=== PATIENT | male | born 1985 | race Caucasian/White ===

== ENCOUNTER 2017-07-01 17:10 | Inpatient (IN) ==
[2017-07-01 18:11] LABS: Basophils % 0.3 %; Eosinophils # 0.2 K/mcL (0.0-0.6); Eosinophils % 1.5 %; Hemoglobin 14.6 g/dL (12.9-16.9); Immature Granulocytes % 0.3 % (0-4); Lymphocytes # 2.8 K/mcL (0.6-4.6); Lymphocytes % 22.1 %; Mean Corpuscular HGB Conc 33.2 g/dL (31.6-35.5); Mean Corpuscular Hemoglobin 28.9 pg (28.0-33.3); Mean Platelet Volume 10.7 fL (9.4-12.4); Monocytes # 0.7 K/mcL (0.0-1.3); Monocytes % 5.5 %; Neutrophils # 8.9 K/mcL (1.6-8.9); Platelet Count 265 K/mcL (140-400); Red Blood Count 5.06 M/mcL (4.19-5.50); Red Cell Distribution Width 13.7 % (11.5-14.5); Segmented Neutrophils % 70.3 %
[2017-07-01 18:30] LABS: BUN/Creatinine Ratio 13 (6-26); Blood Urea Nitrogen 10 mg/dL (8-26); Calcium 9.1 mg/dL (8.6-10.8); Carbon Dioxide 27 mEq/L (19-29); Chloride 103 mEq/L (98-109); Glucose 96 mg/dL (70-99); Osmolality,Calculated 287 (280-300); Sodium 139 mEq/L (136-145); eGFR For African Americans > 60 (> 60); eGFR For Non-African Americans > 60 (> 60)
[2017-07-01 18:32] LABS: Acetaminophen < 1.0 mcg/mL (10-30); Ethanol < 10 mg/dL (0-10); Salicylate < 5.0 mg/dL (15-30)
--- NOTE | 2017-07-01 18:35 | Emergency Department Note ---
Disposition Clinical Impression: Suicidal ideations, Methamphetamine abuse, Cocaine abuse Disposition: Transfer Psychiatric Hosp Condition: Good Referrals: NONE,PCP [Primary Care Provider] - Forms: ED Satisfaction Letter Time of Disposition: 22:57 Psych HPI - General Chief Complaint: ED Psychiatric Symptoms Stated Complaint: PSYCH CONSULT Time Seen by Provider: 07/01/17 18:00 Source: patient Mode of arrival: private vehicle Limitations: no limitations Nursing Notes Reviewed: Yes Vital Signs Reviewed: Yes - History of Present Illness HPI Narrative: 31-year-old male presents ED because of suicidal ideations. He has a history of recurring substance abuse including methamphetamine and cocaine. He used both most recently within the last 48 hours. He also chronically takes Klonopin for anxiety but has been off this for 3 days. Denies any fevers or chills. No chest pain. No dyspnea. No vomiting. No tremors or seizures. Pt complaint: suicidal ideation Onset (ago): day(s) Duration: constant History of similar episodes: Yes Improves with: none Worsens with: none Context: recent drug abuse Alleged intoxication: No Associated Psychiatric Symptoms: none Associated symptoms: Denies: confusion, headache, shortness of breath Traumatic symptoms: denies traumatic injury Treatments prior to arrival: none Self harm or harm to others: admits thoughts of self harm - Related Data Previous Rx's Medication Instructions Recorded DULoxetine [Cymbalta] 30 mg PO DAILY #30 capsule. 02/23/16 Famotidine [Pepcid] 20 mg PO BID tablet 02/23/16 Gabapentin [Neurontin] 300 mg PO TID PRN #0 capsule 02/23/16 Ibuprofen [Motrin] 800 mg PO BID tablet 02/23/16 Lisinopril [Zestril] 10 mg PO DAILY tablet 02/23/16 Omeprazole [PriLOSEC] 20 mg PO BIDAC capsule 02/23/16 Rivaroxaban [Xarelto] 10 mg PO 1700 tablet 02/23/16 Allergies Allergy/AdvReac Type Severity Reaction Status Date / Time No Known Allergies Allergy Verified 02/22/16 15:41 All systems ED: reviewed and negative except as stated. Constitutional: Denies: fever Cardiovascular: Denies: chest pain, palpitations Respiratory: Denies: cough, dyspnea Psychiatric: Reports: anxiety, depression, suicidal thoughts. Denies: homicidal thoughts, auditory hallucinations, visual hallucinations Past Medical History - Past Medical History Attestation: Yes The following information was validated with the patient. Medical history: Reports: hypertension, pulmonary embolus, other Surgical history: Reports: other Psychiatric history: Reports: anxiety - Social History Smoking Status: Current every day smoker Smokeless Tobacco Status: No Alcohol use: Reports: rarely Drug use: Reports: none Physical Exam - General Limitations: no limitations General appearance: alert, in no apparent distress - Head Head exam: atraumatic, normocephalic - Eye Eye exam: Present: normal appearance, PERRL, EOMI - ENT ENT exam: normal oropharynx, mucous membranes moist - Neck Neck exam: Present: trachea midline - Respiratory Respiratory exam: Present: normal lung sounds bilaterally. Absent: respiratory distress - Cardiovascular Cardiovascular exam: Present: normal rhythm. Absent: bradycardia - Abdominal Exam Abdominal exam: Present: soft, Non-Tender - Extremities Exam Extremities exam: Present: normal inspection - Expanded Lower Extremity Exam Neurovascular/Tendon exam: Present: normal capillary refill - Back Exam Back exam: Present: normal inspection. Absent: tenderness, CVA tenderness (R), CVA tenderness (L) - Neurological Exam Neurological exam: Present: alert, oriented X3 - Psychiatric Psychiatric exam: Present: normal affect, normal mood - Skin Skin exam: Present: warm, dry Course - Reevaluation(s) Reevaluation #1: Patient will be admitted for psychiatric evaluation but awaiting placement Time: 22:45 Vital Signs Temperature 97.9 F 07/01/17 17:25 Pulse Rate 80 07/01/17 17:25 Respiratory Rate 18 07/01/17 17:25 Blood Pressure 149/110 07/01/17 17:25 O2 Sat by Pulse Oximetry 100 07/01/17 17:25 Temperature 97.9 F 07/01/17 17:25 Pulse Rate 80 07/01/17 17:25 Respiratory Rate 18 07/01/17 17:25 Blood Pressure 149/110 07/01/17 17:25 O2 Sat by Pulse Oximetry 100 07/01/17 17:25 Oxygen Delivery Oxygen Delivery Room Air Psych - Lab Data Result diagrams: 07/01/17 18:00 07/01/17 18:00 Lab Results 07/01/17 07/01/17 07/01/17 Range/Units 18:00 18:00 19:16 WBC 12.7 H (4.3-11.1) K/mcL RBC 5.06 (4.19-5.50) M/mcL Hgb 14.6 (12.9-16.9) g/dL Hct 44.0 (37.5-50.1) % MCV 87.0 (83.0-100.0) fL MCH 28.9 (28.0-33.3) pg MCHC 33.2 (31.6-35.5) g/dL RDW 13.7 (11.5-14.5) % Plt Count 265 (140-400) K/mcL MPV 10.7 (9.4-12.4) fL Immature Gran % 0.3 (0-4) % Seg Neutrophils % 70.3 % Lymphocytes % 22.1 % Monocytes % 5.5 % Eosinophils % 1.5 % Basophils % 0.3 % Neutrophils # 8.9 (1.6-8.9) K/mcL Lymphocytes # 2.8 (0.6-4.6) K/mcL Monocytes # 0.7 (0.0-1.3) K/mcL Eosinophils # 0.2 (0.0-0.6) K/mcL Basophils # 0.0 (0.0-0.2) K/mcL Sodium 139 (136-145) mEq/L Potassium 4.0 (3.5-4.5) mEq/L Chloride 103 (98-109) mEq/L Carbon Dioxide 27 (19-29) mEq/L BUN 10 (8-26) mg/dL Creatinine 0.77 (0.72-1.25) mg/dL Est GFR ( Amer) > 60 (> 60) Est GFR (Non-Af Amer) > 60 (> 60) BUN/Creatinine Ratio 13 (6-26) Glucose 96 (70-99) mg/dL Calculated Osmolality 287 (280-300) Calcium 9.1 (8.6-10.8) mg/dL Urine Color Yellow (Yellow) Urine Clarity Turbid A (Clear) Urine pH 7.0 (5.0-8.0) pH Units Ur Specific [place] 1.023 (1.010-1.025) Urine Protein Negative (Neg-Trace) mg/dL Urine Glucose (UA) Normal (Normal) mg/dL Urine Ketones Negative (Negative) mg/dL Urine Blood Negative (Negative) Urine Nitrite Negative (Negative) Urine Bilirubin Negative (Negative) Urine Urobilinogen Normal (Normal) mg/dL Ur Leukocyte Esterase Negative (Negative) Urine Microscopic RBC 0-3 (0-3) per hpf Urine Microscopic WBC 0-3 (0-3) per hpf Ur Squamous Epith Cells Moderate H (None-Few) per lpf Urine Bacteria None Seen (None-Few) per hpf Hyaline Casts None Seen (None-Few) per lpf Salicylates < 5.0 L (15-30) mg/dL Urine Opiates Screen (Warubo=529) ng/mL Acetaminophen < 1.0 L (10-30) mcg/mL Ur Barbiturates Screen (Ycpgoq=771) ng/mL Ur Phencyclidine Scrn (Cutoff=25) ng/mL Ur Amphetamines Screen (Cwylks=0600) ng/mL U Benzodiazepines Scrn (Niidvb=316) ng/mL Urine Cocaine Screen (Cutoff= 300) ng/mL U Marijuana (THC) Screen (Cutoff = 50) ng/mL Ethyl Alcohol < 10 (0-10) mg/dL 07/01/17 Range/Units 19:16 WBC (4.3-11.1) K/mcL RBC (4.19-5.50) M/mcL Hgb (12.9-16.9) g/dL Hct (37.5-50.1) % MCV (83.0-100.0) fL MCH (28.0-33.3) pg MCHC (31.6-35.5) g/dL RDW (11.5-14.5) % Plt Count (140-400) K/mcL MPV (9.4-12.4) fL Immature Gran % (0-4) % Seg Neutrophils % % Lymphocytes % % Monocytes % % Eosinophils % % Basophils % % Neutrophils # (1.6-8.9) K/mcL Lymphocytes # (0.6-4.6) K/mcL Monocytes # (0.0-1.3) K/mcL Eosinophils # (0.0-0.6) K/mcL Basophils # (0.0-0.2) K/mcL Sodium (136-145) mEq/L Potassium (3.5-4.5) mEq/L Chloride (98-109) mEq/L Carbon Dioxide (19-29) mEq/L BUN (8-26) mg/dL Creatinine (0.72-1.25) mg/dL Est GFR ( Amer) (> 60) Est GFR (Non-Af Amer) (> 60) BUN/Creatinine Ratio (6-26) Glucose (70-99) mg/dL Calculated Osmolality (280-300) Calcium (8.6-10.8) mg/dL Urine Color (Yellow) Urine Clarity (Clear) Urine pH (5.0-8.0) pH Units Ur Specific [place] (1.010-1.025) Urine Protein (Neg-Trace) mg/dL Urine Glucose (UA) (Normal) mg/dL Urine Ketones (Negative) mg/dL Urine Blood (Negative) Urine Nitrite (Negative) Urine Bilirubin (Negative) Urine Urobilinogen (Normal) mg/dL Ur Leukocyte Esterase (Negative) Urine Microscopic RBC (0-3) per hpf Urine Microscopic WBC (0-3) per hpf Ur Squamous Epith Cells (None-Few) per lpf Urine Bacteria (None-Few) per hpf Hyaline Casts (None-Few) per lpf Salicylates (15-30) mg/dL Urine Opiates Screen Negative (Uxpmuk=066) ng/mL Acetaminophen (10-30) mcg/mL Ur Barbiturates Screen Negative (Luowij=933) ng/mL Ur Phencyclidine Scrn Negative (Cutoff=25) ng/mL Ur Amphetamines Screen Positive H (Pnuubj=1088) ng/mL U Benzodiazepines Scrn Negative (Pmzzjn=333) ng/mL Urine Cocaine Screen Positive H (Cutoff= 300) ng/mL U Marijuana (THC) Screen Negative (Cutoff = 50) ng/mL Ethyl Alcohol (0-10) mg/dL Psychiatric Medical Clearance - Medical Clearance Checklist Medical History: Depression (Acute) Suicidal ideation (Acute) Adjustment disorder (Acute) Opioid abuse (Acute) Stimulant abuse (Acute) No Social History Section defined Current Vitals: Last Vital Signs Temp 97.9 F 07/01/17 17:25 Pulse 80 07/01/17 17:25 Resp 18 07/01/17 17:25 BP 149/110 07/01/17 17:25 Pulse Ox 100 07/01/17 17:25 Psychiatric Lab Panel: Drug Levels and Toxicity 07/01/17 07/01/17 18:00 19:16 Urine Opiates Screen Negative Acetaminophen < 1.0 L Ur Barbiturates Screen Negative Ur Phencyclidine Scrn Negative Ur Amphetamines Screen Positive H U Benzodiazepines Scrn Negative Urine Cocaine Screen Positive H U Marijuana (THC) Screen Negative Ethyl Alcohol < 10 Abnormal Labs: Abnormal lab results WBC 12.7 K/mcL (4.3-11.1) H 07/01/17 18:00 Urine Clarity Turbid (Clear) A 07/01/17 19:16 Ur Squamous Epith Cells Moderate per lpf (None-Few) H 07/01/17 19:16 Salicylates < 5.0 mg/dL (15-30) L 07/01/17 18:00 Acetaminophen < 1.0 mcg/mL (10-30) L 07/01/17 18:00 Ur Amphetamines Screen Positive ng/mL (Gpumct=7059) H 07/01/17 19:16 Urine Cocaine Screen Positive ng/mL (Cutoff= 300) H 07/01/17 19:16 Attestation Statement - Attestation Attestation: I examined this patient and my medical decision-making was reviewed with the Physician It Integration Architect. I agree with the documented findings, disposition and treatment plan as described except to the extent set forth below.
[2017-07-01 19:33] LABS: Bilirubin,Urine Negative (Negative); Blood,Urine Negative (Negative); Clarity,Urine Turbid (Clear); Color,Urine Yellow (Yellow); Glucose,Urine (UA) Normal (Normal); Ketones,Urine Negative (Negative); Leukocyte Esterase,Urine Negative (Negative); Nitrite,Urine Negative (Negative); Protein,Urine Negative (Neg-Trace); Specific Gravity,Urine 1.023 (1.010-1.025); Urobilinogen,Urine Normal (Normal)
[2017-07-01 19:35] LABS: Amphetamine Screen,Urine Positive ng/mL (Cutoff=1000); Barbiturate Screen,Urine Negative ng/mL (Cutoff=200); Benzodiazepines Screen,Urine Negative ng/mL (Cutoff=200); Cannabinoid Screen,Urine Negative ng/mL (Cutoff = 50); Cocaine Screen,Urine Positive ng/mL (Cutoff= 300); Opiate Screen,Urine Negative ng/mL (Cutoff=300); Phencyclidine Screen,Urine Negative ng/mL (Cutoff=25)
[2017-07-01 19:36] LABS: Bacteria,Urine None Seen per hpf (None-Few); Hyaline Casts,Urine None Seen per lpf (None-Few); RBC,Urine 0-3 per hpf (0-3); Squamous Epithelial Cell,Urine Moderate per lpf (None-Few); WBC,Urine 0-3 per hpf (0-3)
[2017-07-02] MEDS ORDERED: *HR* LORazepam 2 MG/ML VIAL IM PRN (15:22)
[2017-07-02] MEDS ORDERED: MOM Conc 10 ML UD.LIQ PO PRN (15:22)
[2017-07-02] MEDS ORDERED: Mag Hydrox/Al Hydrox/Simeth 30 ML UDC PO PRN (15:22)
[2017-07-02] MEDS ORDERED: Haloperidol Lactate 5 MG/ML VIAL IM PRN (15:22)
[2017-07-02] MEDS ORDERED: Ibuprofen 400 MG TABLET PO PRN (15:22)
[2017-07-02] MEDS ORDERED: *HR* LORazepam 1 MG TABLET PO PRN (15:22)
[2017-07-02] MEDS ORDERED: Gabapentin 300 MG CAPSULE PO PRN (16:16)
[2017-07-02] MEDS: clonazePAM 1 MG TABLET PO SCH (20:53)
[2017-07-03] MEDS: clonazePAM 1 MG TABLET PO SCH ×2 (08:20→20:44)
[2017-07-03] MEDS: Nicotine 14 MG PATCH.TD24 TD SCH (08:20)
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
[2017-07-03] MEDS: traZODone 50 MG TABLET PO PRN (20:47)
[2017-07-04] MEDS: clonazePAM 1 MG TABLET PO SCH ×2 (09:12→21:35)
[2017-07-04] MEDS: FLUoxetine 20 MG CAPSULE PO SCH (09:13)
[2017-07-04] MEDS: Nicotine 14 MG PATCH.TD24 TD SCH (09:14)
--- NOTE | 2017-07-04 14:06 | Psychiatry Progress Note ---
Date of Encounter: 07/04/17 Time of Encounter: 14:01 Subjective Interval history: Patient wants to be considered for a program. He wants to remain free of alcohol and drugs of abuse. He is able to recall hallucination, associated with methamphetaimne. He has called his uncle, who is encouraging recovery. His options include: [facility], [facility]. and other options. He has wanted to steven his daughter to tell her that he needs to get treatment. He was able to talk about OCD phenomena. Review of Systems Psychiatric: Reports: other (obsessions and compulsions) Objective: Exam Patient orientation: Yes Person, Yes Time, Yes Place, Yes Circumstance Level of alertness: Alert Patient appearance: Appropriate Behavior: calm, guarded Psychomotor activity: Normal Eye contact: Maintains Eye Contact Mood description: Anxious Affect description: constricted Speech pattern: Normal rate, Normal rhythm Speech volume: Normal Thought content: Yes Obsessive thoughts, Yes Phobic Judgment: Fair Insight: Partial Results - Vital Signs Vital Signs: Temp Pulse Resp BP Pulse Ox 97.2 F L 96 18 122/83 99 07/04/17 09:00 07/04/17 09:00 07/04/17 09:00 07/04/17 09:00 07/02/17 11:22 Assessment and Plan (1) Adjustment disorder with depressed mood Current visit: Yes Status: Acute Plan: Continue hospitalization, Encourage participation in unit milieu, Family/ Supportive other meeting Risks, benefits, side effects, alternatives discussed w/pt: Yes Patient agreeable to treatment: Yes (2) Cocaine abuse Current visit: Yes Status: Acute Plan: Other Additional Plan: obtain treatment for sobriett Risks, benefits, side effects, alternatives discussed w/pt: Yes Patient agreeable to treatment: Yes (3) Methamphetamine abuse Current visit: Yes Status: Acute Plan: Continue hospitalization, Encourage participation in unit milieu Additional Plan: sobriety Risks, benefits, side effects, alternatives discussed w/pt: Yes Patient agreeable to treatment: Yes (4) Suicidal ideation Current visit: Yes Status: Acute Plan: Close observation, Suicide Precautions per unit protocol Risks, benefits , side effects, alternatives discussed w/pt: Yes Patient agreeable to treatment: Yes Consult Discharge Plan - Plan Referrals: NONE,PCP [Primary Care Provider] -
[2017-07-04] MEDS: traZODone 50 MG TABLET PO PRN (21:35)
[2017-07-05] MEDS: Nicotine 14 MG PATCH.TD24 TD SCH (08:44)
[2017-07-05] MEDS: FLUoxetine 20 MG CAPSULE PO SCH (08:44)
[2017-07-05] MEDS: clonazePAM 1 MG TABLET PO SCH (08:44)
--- NOTE | 2017-07-05 14:28 | Psychiatry Progress Note ---
Date of Encounter: 07/05/17 Time of Encounter: 14:26 Subjective Interval history: The patient is interested in rehabilitation he has 3 pages of places to call some places it may take 3-4 weeks to get into but he may talk to his uncle about where he could stay during that period of time his uncle is familiar with drug abuse and the time necessary for recovery. The patient did not necessarily want to go the refuge and his D and his other options. The patient wants to stay on Prozac he understands that he must taper off clonazepam and he will not be discharged. Review of Systems Psychiatric: Reports: depression, anxiety, other (obsessions and compulsions) Objective: Exam Patient orientation: Yes Person, Yes Time, Yes Place, Yes Circumstance Level of alertness: Alert Patient appearance: Appropriate Behavior: calm Psychomotor activity: Normal Eye contact: Maintains Eye Contact Mood description: Anxious Affect description: dysphoric, anxious Speech pattern: Normal rhythm, Excessive Speech volume: Normal Thought process: Intact Thought content: Yes Obsessive thoughts Judgment: Fair Insight: Partial Results - Vital Signs Vital Signs: Temp Pulse Resp BP Pulse Ox 97.4 F L 84 18 119/84 99 07/05/17 09:00 07/05/17 09:00 07/05/17 09:00 07/05/17 09:00 07/02/17 11:22 Assessment and Plan (1) Adjustment disorder with depressed mood Current visit: Yes Status: Acute Plan: Continue hospitalization, Close observation, Suicide Precautions per unit protocol, Encourage participation in unit milieu Risks, benefits, side effects , alternatives discussed w/pt: Yes Patient agreeable to treatment: Yes (2) Cocaine abuse Current visit: Yes Status: Acute Plan: Continue hospitalization Additional Plan: taper and d/c clonazepam Risks, benefits, side effects, alternatives discussed w/pt: Yes Patient agreeable to treatment: Yes (3) Methamphetamine abuse Current visit: Yes Status: Acute Plan: Continue hospitalization Additional Plan: seek rehabilitation Risks, benefits, side effects, alternatives discussed w/pt: Yes Patient agreeable to treatment: Yes (4) Suicidal ideation Current visit: Yes Status: Acute Plan: Suicide Precautions per unit protocol, Secure weapons Risks, benefits, side effects, alternatives discussed w/pt: Yes Patient agreeable to treatment : Yes Consult Discharge Plan - Plan Referrals: [facility] [Outside] - 08/15/17 10:00 am (The above appointment is with Geno Christensen for outpatient psychiatric assessment and medication management services. Please arrive 30 minutes early to complete paperwork. Please bring your photo ID (bring proof of address if you do not have an ID) and medication list. The above appointment(s) reflects first availability. You may contact the office regularly to check for cancellations that may allow you to be seen sooner. ) [facility] [Outside] - 07/09/17 12:00 pm (The above appointment is with Roya for outpatient substance abuse and mental health assessment and counseling services.)
[2017-07-05] MEDS: traZODone 50 MG TABLET PO PRN (21:53)
[2017-07-05] MEDS: clonazePAM 0.5 MG TABLET PO SCH (21:53)
[2017-07-06] MEDS: clonazePAM 0.5 MG TABLET PO SCH ×2 (08:43→20:11)
[2017-07-06] MEDS: Nicotine 14 MG PATCH.TD24 TD SCH (08:43)
[2017-07-06] MEDS: FLUoxetine 20 MG CAPSULE PO SCH (08:45)
--- NOTE | 2017-07-06 12:32 | Psychiatry Progress Note ---
Date of Encounter: 07/06/17 Time of Encounter: 12:27 Subjective Interval history: Client reports he is feeling better. Thinks Prozac is helping him. Suicidal thoughts have improved. Still gets teary eyed when discussing custody loss of daughter due to drug use. Wants rehab but has struggled with motivation to call places. According to documentation he just starting reaching out yesterday. Plan was for him to stay with his uncle until a rehab bed opens but uncle called this morning to say he is supportive of client and will spend time with him but cannot allow him to stay in the home as his presence could jeopardize 's employment. Client states he can stay with his mother and potentially friends but that drugs/alcohol are present in all other housing options. Chose uncle since his uncle is sober and it would have been a safe environment. Client intends to call other residential rehab placements today and will reevaluate tomorrow. Review of Systems Constitutional: Denies: fever, chills, weakness, weight change Eyes: Denies: eye pain, vision change Ears, Nose, Throat: Denies: ear pain, throat pain, dental pain, hearing loss, congestion Cardiovascular: Denies: chest pain, palpitations, dyspnea on exertion Respiratory: Denies: cough, dyspnea, wheezes Gastrointestinal: Denies: abdominal pain, nausea, vomiting, diarrhea, constipation Musculoskeletal: Denies: joint swelling, joint pain Neurological: Denies: headache, weakness, numbness, memory loss Psychiatric: Reports: depression, anxiety, other (obsessions and compulsions) Objective: Exam Patient orientation: Yes Person, Yes Time, Yes Place Level of alertness: Alert Patient appearance: Appropriate, Well Groomed Behavior: calm, cooperative Psychomotor activity: Normal Eye contact: Maintains Eye Contact Mood description: Depressed Affect description: congruent with mood Speech volume: Normal Thought process: Linear Thought content: No Suicidal ideation, No Homicidal ideation, No Overt delusions Perceptual disturbances: No Auditory hallucinations, No Visual hallucinations Judgment: Limited Insight: Partial Results - Vital Signs Vital Signs: Temp Pulse Resp BP Pulse Ox 98.2 F 79 18 130/79 99 07/06/17 09:00 07/06/17 09:00 07/06/17 09:00 07/06/17 09:00 07/02/17 11:22 Assessment and Plan (1) Adjustment disorder with depressed mood Current visit: Yes Status: Acute Plan: Continue hospitalization, Close observation, Suicide Precautions per unit protocol, Encourage participation in unit milieu, Group Therapy, Monitor sleep, Monitor appetite Risks, benefits, side effects, alternatives discussed w/pt: Yes Patient agreeable to treatment: Yes (2) Methamphetamine abuse Current visit: Yes Status: Acute Plan: Continue hospitalization, Close observation, Suicide Precautions per unit protocol, Encourage participation in unit milieu, Group Therapy, Monitor sleep, Monitor appetite Risks, benefits, side effects, alternatives discussed w/pt: Yes Patient agreeable to treatment: Yes Consult Discharge Plan - Plan Referrals: [facility] [Outside] - 08/15/17 10:00 am (The above appointment is with Geno Christensen for outpatient psychiatric assessment and medication management services. Please arrive 30 minutes early to complete paperwork. Please bring your photo ID (bring proof of address if you do not have an ID) and medication list. The above appointment(s) reflects first availability. You may contact the office regularly to check for cancellations that may allow you to be seen sooner. ) [facility] [Outside] - 07/09/17 12:00 pm (The above appointment is with Roya for outpatient substance abuse and mental health assessment and counseling services.)
[2017-07-06] MEDS: traZODone 50 MG TABLET PO PRN (20:11)
[2017-07-06] MEDS: hydrOXYzine pamoate 25 MG CAPSULE PO PRN (20:11)
[2017-07-07] MEDS: FLUoxetine 20 MG CAPSULE PO SCH (08:43)
[2017-07-07] MEDS: Nicotine 14 MG PATCH.TD24 TD SCH (08:43)
[2017-07-07] MEDS: clonazePAM 0.5 MG TABLET PO SCH ×2 (08:43→22:00)
--- NOTE | 2017-07-07 12:24 | Psychiatry Progress Note ---
Date of Encounter: 07/07/17 Time of Encounter: 12:21 Subjective Interval history: Still depressed and anxious but denying SI. Took Vistaril last night and reported it helped. Discussed using it as a prn today as well. Called some rehab places yesterday but client reports every place he contacted was closed or told him to call back on Saturday. Staff report he was on the phone yesterday. Doubt he put effort into calling everywhere on the list but he still wants to go to rehab and he is reaching out now. Hopefully, a bed will become available early next week as he will be clinically ready to move into a residential treatment bed by then. Review of Systems Constitutional: Denies: fever, chills, weakness, weight change Eyes: Denies: eye pain, vision change Ears, Nose, Throat: Denies: ear pain, throat pain, dental pain, hearing loss, congestion Cardiovascular: Denies: chest pain, palpitations, dyspnea on exertion Respiratory: Denies: cough, dyspnea, wheezes Gastrointestinal: Denies: abdominal pain, nausea, vomiting, diarrhea, constipation Musculoskeletal: Denies: joint swelling, joint pain Neurological: Denies: headache, weakness, numbness, memory loss Psychiatric: Reports: depression, anxiety, other (obsessions and compulsions) Objective: Exam Patient orientation: Yes Person, Yes Time, Yes Place Level of alertness: Alert Patient appearance: Appropriate, Well Groomed Behavior: calm, cooperative Psychomotor activity: Normal Eye contact: Maintains Eye Contact Mood description: Anxious Affect description: congruent with mood Speech pattern: Normal rate, Normal rhythm, Normal tone Speech volume: Normal Thought process: Linear Thought content: No Suicidal ideation, No Homicidal ideation, No Overt delusions Perceptual disturbances: No Auditory hallucinations, No Visual hallucinations Judgment: Fair Insight: Partial Results - Vital Signs Vital Signs: Temp Pulse Resp BP Pulse Ox 97.3 F L 84 16 118/85 99 07/07/17 09:00 07/07/17 09:00 07/07/17 09:00 07/07/17 09:00 07/02/17 11:22 Assessment and Plan (1) Adjustment disorder with depressed mood Current visit: Yes Status: Acute Plan: Continue hospitalization, Close observation, Suicide Precautions per unit protocol, Encourage participation in unit milieu, Group Therapy, Monitor sleep, Monitor appetite Risks, benefits, side effects, alternatives discussed w/pt: Yes Patient agreeable to treatment: Yes (2) Methamphetamine abuse Current visit: Yes Status: Acute Plan: Continue hospitalization, Close observation, Suicide Precautions per unit protocol, Encourage participation in unit milieu, Group Therapy, Monitor sleep, Monitor appetite Risks, benefits, side effects, alternatives discussed w/pt: Yes Patient agreeable to treatment: Yes Consult Discharge Plan - Plan Referrals: [facility] [Outside] - 08/15/17 10:00 am (The above appointment is with Geno Christensen for outpatient psychiatric assessment and medication management services. Please arrive 30 minutes early to complete paperwork. Please bring your photo ID (bring proof of address if you do not have an ID) and medication list. The above appointment(s) reflects first availability. You may contact the office regularly to check for cancellations that may allow you to be seen sooner. ) [facility] [Outside] - 07/09/17 12:00 pm (The above appointment is with Roya for outpatient substance abuse and mental health assessment and counseling services.)
[2017-07-07] MEDS: hydrOXYzine pamoate 25 MG CAPSULE PO PRN (12:26)
[2017-07-07] MEDS: traZODone 50 MG TABLET PO PRN (22:00)
[2017-07-08] MEDS: FLUoxetine 20 MG CAPSULE PO SCH (09:17)
[2017-07-08 09:18] VITALS: BP 122/82
[2017-07-08] MEDS: clonazePAM 0.5 MG TABLET PO SCH (09:18)
[2017-07-08] MEDS: Nicotine 14 MG PATCH.TD24 TD SCH (09:19)
--- NOTE | 2017-07-08 13:12 | Discharge Summary ---
Date of Encounter: 07/08/17 Time of Encounter: 11:15 Diagnosis - Discharge Diagnosis (1) Depression Priority: Primary Status: Acute Qualifiers: Depression Type: major depressive disorder Major depression recurrence: recurrent Active/Remission status: currently active Major depression episode severity: moderate Qualified Code(s): F33.1 - Major depressive disorder, recurrent, moderate (2) Cocaine abuse Priority: Secondary Status: Acute (3) Methamphetamine abuse Priority: Secondary Status: Acute Medications - Discharge Medications Prescriptions: FLUoxetine HCl [Prozac] 40 mg PO DAILY #60 capsule Mirtazapine [Remeron] 15 mg PO DAILY #30 tablet traZODone [TraZODone] 50 mg PO HS PRN #30 tablet PRN Reason: Insomnia Gabapentin [Neurontin] 300 mg PO TID PRN 07/02/17 [History] clonazePAM [Klonopin] 1 mg PO BID 07/02/17 [History] FLUoxetine HCl [Prozac] 40 mg PO DAILY #60 capsule 07/08/17 [Rx] Mirtazapine [Remeron] 15 mg PO DAILY #30 tablet 07/08/17 [Rx] traZODone [TraZODone] 50 mg PO HS PRN #30 tablet 07/08/17 [Rx] 3 Allergy/AdvReac Type Severity Reaction Status Date / Time No Known Allergies Allergy Verified 07/02/17 12:25 Provider Date of admission: 07/02/17 14:53 Primary care physician: PCP NONE Discharging clinician: Mariana Gan Assessment and Plan - Patient/Caregiver Discharge Instructions Activity: resume usual activities as tolerated Diet: regular diet Additional Instructions: You are going to [facility] for residential substance abuse treatment services. They are located at [address] [place] [address] [place] [address]. The phone number is [phone]. Fax shares the same line as phone number. Staff at [facility] will schedule primary care and mental health services on your behalf after arrival into the program. The crisis number for this region is [phone]. - Follow up Plan Follow up with: [facility] [Outside] - 08/15/17 10:00 am (The above appointment is with Geno Daily for outpatient psychiatric assessment and medication management services. Please arrive 30 minutes early to complete paperwork. Please bring your photo ID (bring proof of address if you do not have an ID) and medication list. The above appointment(s) reflects first availability. You may contact the office regularly to check for cancellations that may allow you to be seen sooner. ) Functional capacity at discharge: independent ambulation Overall status at discharge: Stable Disposition: Home, Self-Care Hospital Course Hospital course: Mr. Herbert is a 31 year old male with a history of depression and substance abuse who presented to the hospital with increasing depression and suicidal ideations. Patient was admitted to for psychiatric stabilization. He was incorporated into the therapeutic milieu and offer group and individual as well as recreational therapies. He was also offered psychoeducational materials and supportive therapy. Patient was started on Prozac and given trazodone for sleep. Throughout the course of the hospital stay he reported improvement in his mood. He began to deny suicidal ideations area patient did not have a place to stay initially but his uncle was agreeable to helping him by giving him money to stay in a hotel until he could be evaluated for rehabilitation. Patient is looking forward to following up as an outpatient for substance abuse treatment and feels he is "ready for the first time to get off the drugs." At the time of discharge he denied suicidal or homicidal ideation, intent or plan. He was future oriented and agreeable to following up as an outpatient He is discharged in stable condition. - Time Spent with Patient Total time spent providing and/or coordinating discharge services: Greater than 30 minutes Quality - Multiple Antipsychotics Patient discharged on 2 or more antipsychotic medications: No Procedures - Procedures Procedures: Medication Management, Crisis Stabilization, Supportive Therapy, Group Therapy, Psychoeducational Therapy Mental Status Exam - Mental Status Exam Patient orientation: Yes Person, Yes Time, Yes Place Level of alertness: Alert Patient appearance: Appropriate, Well Groomed Behavior: calm, cooperative Psychomotor activity: Normal Eye contact: Maintains Eye Contact Mood description: Euthymic/stable Affect description: congruent with mood, full range Speech pattern: Normal rate, Normal rhythm, Normal tone Speech Volume: Normal Thought process: Linear, Goal Oriented Thought Content: No Suicidal ideation, No Homicidal ideation, No Overt delusions Perceptual Disturbances: No Auditory hallucinations, No Visual hallucinations Judgment: Limited Insight: Partial
== END 2017-07-08 14:40 | disposition home or self-care (01) | DRG 751 ==
LOC: EMEROO 17:10 → 1ANU 07-02 14:53
PROVIDERS: ADMIT Psychiatry & Neurology Forensic Psychiatry; ATTEND Psychiatry & Neurology Forensic Psychiatry